=== PATIENT | male | born 1990 ===

== ENCOUNTER 2021-06-10 13:03 | Emergency (ER) | payer SELFPAY ==
[2021-06-10 14:37] VITALS: BP 117/84
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
== END 2021-06-10 23:47 | disposition home or self-care (01) ==
LOC: ED 13:03
DX: R10.9 Unspecified abdominal pain (principal); V89.2XXA Person injured in unspecified motor-vehicle accident, traffic, initial encounter; Y93.89 Activity, other specified; Y92.89 Other specified places as the place of occurrence of the external cause; Y99.8 Other external cause status
CPT/HCPCS: 74176; 99283